=== PATIENT | male | born 1955 | race Caucasian/White ===

== ENCOUNTER 2017-01-14 21:24 | Emergency (ER) | payer MEDICAID ==
--- NOTE | 2017-01-15 00:50 | ER Document Report ---
HPI - HPI Patient complains to provider of: Right ear discomfort Pain Level: 1 Context: Patient is a 61-year-old male who comes emergency department for chief complaint of foreign object in right ear. He states he had an ear wick placed in both ears by ENT, states the ear swelling went down, the left one fell out, the right one fell in further and he cannot get it out. He states it is irritating. He states his ears has significantly improved since he began the drops, he has no other complaints. - REPRODUCTIVE Reproductive: DENIES: : - DERM Skin Color: Normal, [place] Past Medical History - General Information source: Patient - Social History Smoking Status: Never Smoker Frequency of alcohol use: None Drug Abuse: None Lives with: Family Family History: None Pulmonary Medical History: Reports: Hx Pneumonia - double lobe Denies: Hx Tuberculosis Renal/ Medical History: Denies: Hx Peritoneal Dialysis GI Medical History: Reports: Hx Gastroesophageal Reflux Disease Psychiatric Medical History: Reports: Hx Depression - R/t son's about 2 years ago, does not want to be seen here. - Immunizations Hx Diphtheria, Pertussis, Tetanus Vaccination: Yes Hx Pneumococcal Vaccination: 01/25/14 Vertical Provider Document - CONSTITUTIONAL General Appearance: WD/WN, No Apparent Distress - INFECTION CONTROL TRAVEL OUTSIDE OF THE [place] IN LAST 30 DAYS: No - HEENT HEENT: Atraumatic, Normocephalic. negative: Normal ENT Exam - Ear canals with some erythema and mild swelling, no discharge, unremarkable tympanic membranes, no abscess or other abnormality noted except for an ear wick stuck in the middle of the right external canal. - NECK Neck: Normal Inspection - RESPIRATORY Respiratory: Breath Sounds Normal, No Respiratory Distress O2 Sat by Pulse Oximetry: 98 - CARDIOVASCULAR Cardiovascular: Regular Rate, Regular Rhythm - GI/ABDOMEN Gastrointestinal: Abdomen Soft, Abdomen Non-Tender - BACK Back: Normal Inspection - NEURO Level of Consciousness: Awake, Alert, Appropriate Course - Vital Signs Vital signs: Temp Pulse Resp BP Pulse Ox 97.9 F 71 16 151/74 H 98 01/14/17 21:42 01/14/17 21:42 01/14/17 21:42 01/14/17 21:42 01/14/17 21:42 Procedures - Additional Procedures Right ear canal foreign body removal Additional Procedures: Other - Alligator forceps used to grasp the ear wick in the center of the right external canal of the ear, removed easily in 1 piece, observation afterwards showed no abnormalities. No bleeding or other complications. Discharge - Discharge Clinical Impression: Non-penetrating foreign body in right ear canal Qualifiers: Encounter type: initial encounter Qualified Code(s): S00.451A - Superficial foreign body of right ear, initial encounter Condition: Stable Disposition: HOME, SELF-CARE Additional Instructions: Foreign body has been removed, you still do have otitis externa, inflammation/ infection of the ear canal. Continue your eardrops, continue follow-up with ENT. Return to emergency department for any concerning or worsening symptoms including swelling of the ear, fever, vomiting, dizziness, etc. Referrals: ANJEL ROGERS MD [Primary Care Provider] - Follow up as needed
[2017-01-15 01:46] VITALS: BP 138/56
== END 2017-01-15 01:43 | disposition home or self-care (01) ==
LOC: ER 21:24
DX: T16.1XXA Foreign body in right ear, initial encounter (principal); X58.XXXA Exposure to other specified factors, initial encounter
CPT/HCPCS: 99282

== ENCOUNTER 2017-01-26 16:21 | Emergency (ER) | payer MEDICAID ==
--- NOTE | 2017-01-26 16:59 | ER Document Report ---
ED Medical Screen (RME) - General Chief Complaint: Cough Stated Complaint: COUGH Time Seen by Provider: 01/26/17 16:43 Mode of Arrival: Ambulatory Information source: Patient TRAVEL OUTSIDE OF THE [place] IN LAST 30 DAYS: No - HPI Onset: Last week Onset/Duration: Gradual Context: DISCOVERED TO HAVE "SEVERE EAR INFECTION" BILATERAL, BEGUN ON TREATMENT. HAD MRI FOR EVAL. OF NECK & SPINE PAIN Quality of pain: Achy, Dull Severity: Moderate Associated Symptoms: Cough (nonproductive), Dizzy/lightheaded, Fever, Headache, Sweating Exacerbated by: Denies Relieved by: Denies Similar symptoms previously: No Recently seen / treated by doctor: Yes - LAST WEEK, PCP. - Related Data Smoking: Non-smoker Frequency of alcohol use: Occasional Drug Abuse: None Allergies/Adverse Reactions: No Known Allergies Allergy (Verified 01/26/17 16:28) Past Medical History - General Information source: Patient - Social History Cigarette use (# per day): No Chew tobacco use (# tins/day): No Frequency of alcohol use: Occasional Drug Abuse: None Lives with: Spouse/Significant other Family history: Reviewed & Not Pertinent - Past Medical History Cardiac Medical History: Reports: None Pulmonary Medical History: Reports: Hx Pneumonia - double lobe Denies: Hx Tuberculosis EENT Medical History: Reports: Ears - OTITIS Neurological Medical History: Reports: None Endocrine Medical History: Reports: None Renal/ Medical History: Reports: None. Denies: Hx Peritoneal Dialysis Malignancy Medical History: Reports None GI Medical History: Reports: Hx Gastroesophageal Reflux Disease Psychiatric Medical History: Reports: Hx Depression - R/t son's about 2 years ago, does not want to be seen here. Surgical Hx: Negative - Immunizations Hx Diphtheria, Pertussis, Tetanus Vaccination: Yes Review of Systems - Review of Systems Constitutional: See HPI EENT: See HPI Cardiovascular: No symptoms reported Respiratory: See HPI Gastrointestinal: No symptoms reported Genitourinary: No symptoms reported Musculoskeletal: See HPI, Neck pain Skin: No symptoms reported Neurological/Psychological: No symptoms reported Physical Exam - Vital signs Vitals: Temp Pulse Resp BP Pulse Ox 98.9 F 85 18 157/72 H 93 01/26/17 16:28 01/26/17 16:28 01/26/17 16:28 01/26/17 16:28 01/26/17 16:28 Interpretation: Hypertensive. No: Tachycardic, Tachypneic, Febrile Course - Vital Signs Vital signs: Temp Pulse Resp BP Pulse Ox 98.9 F 85 18 157/72 H 93 01/26/17 16:28 01/26/17 16:28 01/26/17 16:28 01/26/17 16:28 01/26/17 16:28
[2017-01-26 17:25] LABS: ABSOLUTE EOSINOPHILS # (AUTO) 0.1 10^3/uL (0.0-0.6); ABSOLUTE LYMPHOCYTES (AUTO) 1.2 10^3/uL (0.5-4.7); ABSOLUTE MONOCYTES (AUTO) 0.9 10^3/uL (0.1-1.4); ABSOLUTE NEUT (AUTO) 2.9 10^3/uL (1.7-8.2); BASOPHILS % (AUTO) 0.8 % (0-2); HEMATOCRIT 42.3 % (37.9-51.0); HEMOGLOBIN 13.8 g/dL (13.5-17.0); HGB HCT DIFFERENCE -0.9; LYMPHOCYTES % (AUTO) 23.1 % (13-45); MEAN CORPUSCULAR HEMOGLOBIN 29.7 pg (27.0-33.4); MEAN CORPUSCULAR HGB CONC 32.6 g/dL (32.0-36.0); MEAN CORPUSCULAR VOLUME 91 fl (80-97); MONOCYTES % (AUTO) 17.8 % (3-13); RED BLOOD COUNT 4.64 10^6/uL (4.35-5.55); RED CELL DISTRIBUTION WIDTH 15.1 % (11.5-14.0); SEGMENTED NEUTROPHILS % (AUTO) 56.3 % (42-78); WHITE BLOOD COUNT 5.2 10^3/uL (4.0-10.5)
[2017-01-26 17:31] LABS: ALANINE AMINOTRANSFERASE 35 U/L (21-72); ALBUMIN 3.8 g/dL (3.5-5.0); ALKALINE PHOSPHATASE 59 U/L (38-126); ANION GAP 10 (5-19); ASPARTATE AMINO TRANSFERASE 28 U/L (17-59); BILIRUBIN,DIRECT 0.3 mg/dL (0.0-0.4); BILIRUBIN,TOTAL 0.5 mg/dL (0.2-1.3); BLOOD UREA NITROGEN 11 mg/dL (7-20); CALCIUM 9.2 mg/dL (8.4-10.2); CARBON DIOXIDE 22 mmol/L (22-30); CHLORIDE 104 mmol/L (98-107); CREATININE RESULT 1.49 mg/dL (0.52-1.25); GLUCOSE 82 mg/dL (75-110); POTASSIUM 4.5 mmol/L (3.6-5.0); TOTAL PROTEIN 6.6 g/dL (6.3-8.2)
--- NOTE | 2017-01-26 17:44 | ER Document Report ---
ED General - General Mode of Arrival: Ambulatory Information source: Patient TRAVEL OUTSIDE OF THE [place] IN LAST 30 DAYS: No - HPI Onset: Other - see narrative Recently seen / treated by doctor: Yes <LISA LIZAMA - Last Filed: 01/26/17 22:43> <SHIRA JJ - Last Filed: 01/26/17 22:54> - General Chief Complaint: Cough Stated Complaint: COUGH Time Seen by Provider: 01/26/17 16:43 Notes: Patient is a 62-year-old male who presents to the emergency department today with complaints of "flu-like symptoms". Patient states he is currently getting over a recent ear infection, and he is still taking the Bactrim that was prescribed. Patient states he has had a cough for the last 5 or 6 days. Patient states that the cough feels like it is "down in his chest". Patient states he has felt dizzy and off-balance with a slight headache for the last two days. Patient states he was not prescribed meclizine or Antivert when he was treated for his ear infection. Patient states he feels like he has slight leg swelling bilaterally as well. Patient denies any nausea or vomiting. (LISA LIZAMA) - Related Data Allergies/Adverse Reactions: No Known Allergies Allergy (Verified 01/26/17 16:28) Past Medical History - General Information source: Patient - Social History Smoking Status: Current Every Day Smoker Cigarette use (# per day): Yes Chew tobacco use (# tins/day): No Frequency of alcohol use: Occasional Drug Abuse: None Lives with: Spouse/Significant other Family History: None Patient has suicidal ideation: No Patient has homicidal ideation: No - Past Medical History Cardiac Medical History: Reports: None Pulmonary Medical History: Reports: Hx Pneumonia - double lobe EENT Medical History: Reports: Ears - OTITIS GI Medical History: Reports: Hx Gastroesophageal Reflux Disease Psychiatric Medical History: Reports: Hx Depression - R/t son's about 2 years ago, does not want to be seen here. Surgical Hx: Negative - Immunizations Hx Diphtheria, Pertussis, Tetanus Vaccination: Yes Hx Pneumococcal Vaccination: 01/25/14 <LISA LIZAMA - Last Filed: 01/26/17 22:43> Review of Systems - Review of Systems Constitutional: No symptoms reported EENT: No symptoms reported Cardiovascular: See HPI, Dizziness Respiratory: See HPI, Cough - "down in chest" Gastrointestinal: denies: Nausea, Vomiting Genitourinary: No symptoms reported Male Genitourinary: No symptoms reported Musculoskeletal: See HPI, Leg swelling - bilateral Skin: No symptoms reported Hematologic/Lymphatic: No symptoms reported Neurological/Psychological: See HPI, Headaches -: Yes All other systems reviewed and negative <LISA LIZAMA - Last Filed: 01/26/17 22:43> Physical Exam <LISA LIZAMA - Last Filed: 01/26/17 22:43> <SHIRA JJ - Last Filed: 01/26/17 22:54> - Vital signs Vitals: Temp Pulse Resp BP Pulse Ox 98.9 F 85 18 157/72 H 93 01/26/17 16:28 01/26/17 16:28 01/26/17 16:28 01/26/17 16:28 01/26/17 16:28 - Notes Notes: PHYSICAL EXAM GENERAL: Alert, interacts well. No acute distress. HEAD: Normocephalic, atraumatic. EYES: Pupils equal, round, and reactive to light. Extraocular movements intact. ENT: Oral mucosa moist, tongue midline. Left TM is clear, external canal is not erythematous. Right external canal is erythematous. Purulent drainage in external canal bilaterally. No mastoid tenderness with palpation. NECK: Full range of motion. Supple. Trachea midline. LUNGS: Diffuse rhonchi on the left which clears with cough, diffuse rhonchi on the right which does not clear with cough. Slight expiratory wheeze. No respiratory distress. HEART: Regular rate and rhythm. No murmurs, gallops, or rubs. ABDOMEN: Soft, obese, minimal tenderness with palpation of left lateral abdomen. Non-distended. Bowel sounds present in all 4 quadrants. EXTREMITIES: Moves all 4 extremities spontaneously. No edema, radial and dorsalis pedis pulses 2/4 bilaterally. No cyanosis. NEUROLOGICAL: Alert and oriented x3. Normal speech. PSYCH: Normal affect, normal mood. SKIN: Warm, dry, normal turgor. No rashes or lesions noted. (LISA LIZAMA) Course - Laboratory Result Diagrams: 01/26/17 17:00 01/26/17 17:00 <LISA LIZAMA - Last Filed: 01/26/17 22:43> - Laboratory Result Diagrams: 01/26/17 17:00 01/26/17 17:00 <SHIRA JJ - Last Filed: 01/26/17 22:54> - Re-evaluation Re-evalutation: 01/26/17 19:39 CBC unremarkable, CMP grossly unremarkable except for slightly elevated creatinine at 1.49, chest x-ray shows no acute process. No evidence of ataxia on my examination though he complains he had some slight difficulty walking to the bathroom. When combining this with his recent diagnosis of bilateral otitis externa it is possible that the patient is having some vertigo that is related to his ear problems. Patient will be started on Antivert. Chest x-ray did not show any pneumonia. Patient is still taking Bactrim for the otitis externa as well as the neomycin and polymyxin eardrops. Patient will be discharged home and asked to continue to follow-up with his primary care physician Dr. Victor as well as ENT as an outpatient. 01/26/17 19:43 Some slight wheeze on examination, he was given an inhaler. He was also prescribed Tessalon Perles for his cough (SHIRA JJ) - Vital Signs Vital signs: Temp Pulse Resp BP Pulse Ox 97.9 F 80 19 142/76 H 100 01/26/17 20:13 01/26/17 20:13 01/26/17 20:13 01/26/17 20:13 01/26/17 20:13 - Laboratory Laboratory results interpreted by me: 01/26/17 01/26/17 17:00 17:00 RDW 15.1 H Monocytes % 17.8 H Sodium 136.0 L Creatinine 1.49 H Est GFR ( Amer) 58 L Est GFR (Non-Af Amer) 48 L Discharge <LISA LIZAMA - Last Filed: 01/26/17 22:43> <SHIRA JJ - Last Filed: 01/26/17 22:54> - Discharge Clinical Impression: Cough in adult patient, Vertigo, Wheezing Bilateral otitis externa Qualifiers: Otitis externa type: unspecified type Chronicity: acute Qualified Code(s): H60.503 - Unspecified acute noninfective otitis externa, bilateral Condition: Stable Disposition: HOME, SELF-CARE Additional Instructions: Today there is no evidence of infection on your chest x-ray. There is no evidence of pneumonia. You did have some slight wheezing on your physical examination so I prescribed you an inhaler that should help with this and it may help to decrease your cough. In addition I have given you Tessalon Perles that will help to decrease your cough. I do not think you need additional antibiotics as you are already taking oral antibiotics for your ear infections as well as antibiotic drops for your ears. Adding more antibiotics will likely just give you diarrhea. I did prescribe Antivert, this is a pill that should help with the sensation of being off balance. Should the off-balance feeling get worse please return to the emergency department. Please return to the emergency department for any new or concerning symptoms. Prescriptions: Benzonatate [Tessalon Perles 100 mg Capsule] 100 mg PO Q8HP PRN #40 capsule PRN Reason: Meclizine HCl [Antivert 25 mg Tablet] 25 mg PO TID PRN #21 tablet PRN Reason: Referrals: ANJEL VICTOR MD [Primary Care Provider] - Follow up in 3-5 days Scribe Attestation: 01/26/17 22:54 I personally performed the services described in the documentation, reviewed and edited the documentation which was dictated to the scribe in my presence, and it accurately records my words and actions. (SHIRA JJ) Scribe Documentation - Scribe Written by Sydni:: Sydni Gaona, [id number] acting as scribe for :: Sophia <LISA LIZAMA - Last Filed: 01/26/17 22:43>
[2017-01-26] MEDS ORDERED: MECLIZINE HCL 25 MG TABLET PO ONE (17:45)
--- NOTE | 2017-01-26 18:25 | RADIOLOGY REPORT (SQ) ---
EXAM DESCRIPTION: CHEST PA/LAT COMPLETED DATE/TIME: 01/26/2017 6:11 pm REASON FOR STUDY: cough, SOB COMPARISON: 2013. TECHNIQUE: Frontal and lateral radiographic views of the chest acquired. NUMBER OF VIEWS: Two view. LIMITATIONS: None. FINDINGS: LUNGS AND PLEURA: No opacities, masses or pneumothorax. No pleural effusion. MEDIASTINUM AND HILAR STRUCTURES: No masses or contour abnormalities. HEART AND VASCULAR STRUCTURES: Heart normal size. No evidence for failure. BONES: No acute findings. HARDWARE: None in the chest. OTHER: No other significant finding. IMPRESSION: NO SIGNIFICANT RADIOGRAPHIC FINDING IN THE CHEST. TECHNICAL DOCUMENTATION: JOB ID: [id number] [employer]- All Rights Reserved
[2017-01-26] MEDS ORDERED: ALBUTEROL SULFATE HFA (90 MCG/PUFF) 8 GM MDI (1 MDI/ER DISP) IH ONE (19:43)
[2017-01-26] MEDS ORDERED: KETOROLAC TROMETHAMINE 60 MG/2 ML SDV IM ONE (20:02)
[2017-01-26 20:15] VITALS: BP 142/76
== END 2017-01-26 20:13 | disposition home or self-care (01) ==
LOC: ER 16:21
DX: H60.503 Unspecified acute noninfective otitis externa, bilateral (principal); R05 Cough; R42 Dizziness and giddiness; R06.2 Wheezing; M79.89 Other specified soft tissue disorders; F17.210 Nicotine dependence, cigarettes, uncomplicated
CPT/HCPCS: 99283; 96372; 36415; 85025; 80053; 71020; J1885; J3490